=== PATIENT | male | born 1955 | race Caucasian/White ===

== ENCOUNTER 2017-03-17 15:55 | Emergency (ER) | payer SELFPAY ==
[~2017-03-17] VITALS: Ht 167.6 cm; Wt 61.6 kg
[~2017-03-17 15:55] MED LIST: CEPH-368
[2017-03-17] MEDS ORDERED: SODIUM CHLORIDE FLUSH 10ML SYR IVF ONE (16:30)
[2017-03-17] MEDS ORDERED: ONDANSETRON 2MG/ML, 2ML IVPush ONE (16:30)
[2017-03-17] MEDS ORDERED: SODIUM CHLORIDE 0.9% 1,000ML IVBOLUS ONE (16:30)
[2017-03-17] MEDS ORDERED: ONDANSETRON 2MG/ML, 2ML ONE (17:30)
[2017-03-17 17:34] LABS: ASPARTATE AMINO TRANSFERASE 26 U/L (15-37); BLOOD UREA NITROGEN 7 mg/dL (7-18)
[2017-03-17 17:39] LABS: IS PT STATUS REG ER OR PRE ER? YES
[2017-03-17 20:01] VITALS: BP 140/86
== END 2017-03-17 20:04 | disposition home or self-care (01) ==
LOC: ED 18:07
DX: E86.0 Dehydration (principal); R42 Dizziness and giddiness; J44.9 Chronic obstructive pulmonary disease, unspecified
CPT/HCPCS: 36415; 71010; 80053; 81003; 84484; 85025; 93005; 96361; 96374; 99285; J2405; J7030

== ENCOUNTER 2017-05-12 16:25 | Emergency (ER) | payer SELFPAY ==
[~2017-05-12] VITALS: Ht 167.6 cm; Wt 60.4 kg
[2017-05-12 17:25] LABS: BLOOD UREA NITROGEN 8 mg/dL (7-18)
[2017-05-12 17:30] LABS: ASPARTATE AMINO TRANSFERASE 19 U/L (15-37)
[2017-05-12] MEDS ORDERED: HYDROmorphone 1 MG/ML, 1ML ONE ×2 (18:01→20:32)
[2017-05-12] MEDS: HYDROmorphone 1 MG/ML, 1ML IVPush PRN ×2 (18:03→20:36)
[2017-05-12 21:16] VITALS: BP 143/77
== END 2017-05-12 21:18 | disposition home or self-care (01) ==
LOC: ED 18:24
DX: R10.31 Right lower quadrant pain (principal); F17.210 Nicotine dependence, cigarettes, uncomplicated
CPT/HCPCS: 36415; 74177; 80053; 81003; 83690; 85025; 96374; 96376; 99285; J1170

== ENCOUNTER 2017-07-20 23:47 | Emergency (ER) | payer OTHER ==
[~2017-07-20] VITALS: Ht 167.6 cm; Wt 60.6 kg
[2017-07-20 23:50] VITALS: BP 111/74
== END 2017-07-21 01:06 | disposition home or self-care (01) ==
LOC: ED 23:59
DX: H66.011 Acute suppurative otitis media with spontaneous rupture of ear drum, right ear (principal); J44.9 Chronic obstructive pulmonary disease, unspecified
CPT/HCPCS: 99283

== ENCOUNTER 2017-07-24 00:41 | Emergency (ER) | payer SELFPAY ==
[~2017-07-24] VITALS: Ht 177.8 cm; Wt 87.0 kg
[2017-07-24 00:45] VITALS: BP 144/75
[2017-07-24] MEDS ORDERED: IBUPROFEN 200 MG TABLET ONE (02:22)
[2017-07-24] MEDS ORDERED: PLEASE ENTER HEIGHT AND WEIGHT MC SCH (02:30)
[2017-07-24] MEDS ORDERED: IBUPROFEN 200 MG TABLET PO ONE (02:30)
== END 2017-07-24 02:38 | disposition home or self-care (01) ==
LOC: ED 02:30
DX: H66.011 Acute suppurative otitis media with spontaneous rupture of ear drum, right ear (principal)
CPT/HCPCS: 99283

== ENCOUNTER 2017-10-25 20:01 | Emergency (ER) | payer OTHER ==
[~2017-10-25] VITALS: Ht 167.6 cm; Wt 59.8 kg
[2017-10-25] MEDS ORDERED: ALBU8.5H8 INH (21:01)
[2017-10-25] MEDS ORDERED: SODIUM CHLORIDE 0.9% 1,000ML IVBOLUS ONE (21:30)
[2017-10-25] MEDS ORDERED: ALBUTEROL SULFATE 2.5 MG/3 ML NPPB ONE (21:30)
[2017-10-25] MEDS ORDERED: ALBUTEROL/IPRATROPIUM 2.5MG/0.5MG, 3 ML ONE (21:33)
[2017-10-25 21:51] LABS: HEMATOCRIT 47.5 % (39.2-51.8); HEMOGLOBIN 16.3 g/dL (13.7-18.0); WHITE BLOOD COUNT 5.7 x10^3/uL (3.4-10)
[2017-10-25 22:03] LABS: ASPARTATE AMINO TRANSFERASE 29 U/L (15-37); BLOOD UREA NITROGEN 7 mg/dL (7-18)
[2017-10-25 22:11] LABS: IS PT STATUS REG ER OR PRE ER? YES
[2017-10-25 22:22] VITALS: BP 99/63
== END 2017-10-25 22:44 | disposition home or self-care (01) ==
LOC: ED 22:38
DX: J44.1 Chronic obstructive pulmonary disease with (acute) exacerbation (principal); F17.200 Nicotine dependence, unspecified, uncomplicated
CPT/HCPCS: 36415; 71010; 80053; 84484; 85025; 93005; 94640; 99285; J7030; J7512; J7613

== ENCOUNTER 2017-12-30 04:30 | Emergency (ER) | payer OTHER ==
[~2017-12-30] VITALS: Ht 167.6 cm; Wt 60.0 kg
[~2017-12-30 04:30] MED LIST changes: +ALBU8.5H8 INH
[2017-12-30] MEDS ORDERED: KETOROLAC 30 MG/1 ML IM ONE (05:00)
[2017-12-30] MEDS ORDERED: HYDROmorphone 2 MG/ML, 1ML IM ONE (05:00)
[2017-12-30] MEDS ORDERED: HYDROmorphone 2 MG/ML, 1ML ONE (05:03)
[2017-12-30] MEDS ORDERED: KETOROLAC 30 MG/1 ML ONE (05:04)
[2017-12-30] MEDS ORDERED: HYDROcodone/APAP 5/325 TABLET PO ONE (07:30)
[2017-12-30] MEDS ORDERED: ONDANSETRON ODT 4 MG PO ONE (07:30)
[2017-12-30] MEDS ORDERED: ONDANSETRON ODT 4 MG ONE (07:57)
[2017-12-30] MEDS ORDERED: HYDROcodone/APAP 5/325 TABLET ONE (07:58)
[2017-12-30 08:10] VITALS: BP 112/65
== END 2017-12-30 08:53 | disposition home or self-care (01) ==
LOC: ED 05:41
DX: S16.1XXA Strain of muscle, fascia and tendon at neck level, initial encounter (principal); S29.012A Strain of muscle and tendon of back wall of thorax, initial encounter; S30.0XXA Contusion of lower back and pelvis, initial encounter; S09.90XA Unspecified injury of head, initial encounter; M54.6 Pain in thoracic spine; M54.5 Low back pain; F17.200 Nicotine dependence, unspecified, uncomplicated; H72.91 Unspecified perforation of tympanic membrane, right ear; W19.XXXA Unspecified fall, initial encounter; Y93.89 Activity, other specified; Y92.89 Other specified places as the place of occurrence of the external cause; Y99.8 Other external cause status
CPT/HCPCS: 72072; 72110; 72125; 96372; 99284; J1170; J1885; Q0162

== ENCOUNTER 2018-03-14 18:29 | Emergency (ER) | payer MEDICARE, OTHER ==
[~2018-03-14] VITALS: Ht 167.6 cm; Wt 61.6 kg
[2018-03-14 19:08] VITALS: BP 130/70
[2018-03-14] MEDS ORDERED: MECLIZINE CHEWABLE 25 MG TAB ONE (19:14)
[2018-03-14 19:15] LABS: BASOPHILS # (AUTO) 0.03 x10^3/uL (0-0.1); BASOPHILS % (AUTO) 0 % (0-1); EOSINOPHILS # (AUTO) 0.13 x10^3/uL (0-0.4); EOSINOPHILS % (AUTO) 2 % (1-7); LYMPHOCYTES # (AUTO) 2.09 x10^3/uL (1-3.4); LYMPHOCYTES % (AUTO) 26 % (22-44); MD NO; MEAN CORPUSCULAR HEMOGLOBIN 34.2 pg (27.5-34.5); MEAN CORPUSCULAR HGB CONC 34.4 g/dL (33.2-36.2); MEAN CORPUSCULAR VOLUME 99.5 fL (81-97); MEAN PLATELET VOLUME 7.6 fL (7.4-10.4); MONOCYTES # (AUTO) 0.42 x10^3/uL (0.2-0.8); MONOCYTES % (AUTO) 5 % (2-9); NEUTROPHILS # (AUTO) 5.45 x10^3/uL (1.8-6.8); NEUTROPHILS % (AUTO) 67 % (42-75); PLATELET COUNT 303 x10^3/uL (130-400); RED CELL DISTRIBUTION WIDTH 13.4 % (9.4-14.8)
[2018-03-14] MEDS ORDERED: ONDANSETRON ODT 4 MG ONE (19:15)
[2018-03-14 19:21] LABS: ALANINE AMINOTRANSFERASE 24 U/L (12-78); ALBUMIN 3.7 g/dL (3.4-5.0); ANION GAP 11 mmol/L (5-15); CALCIUM 8.5 mg/dL (8.5-10.1); CHLORIDE 106 mmol/L (98-107); CREATININE 0.77 mg/dL (0.7-1.3)
[2018-03-14 19:25] LABS: ALKALINE PHOSPHATASE 75 U/L (45-117); BILIRUBIN,TOTAL 0.4 mg/dL (0.2-1.0); TROPONIN I < 0.015 ng/mL (0.000-0.045)
[2018-03-14] MEDS ORDERED: ONDANSETRON ODT 4 MG PO ONE (19:30)
[2018-03-14] MEDS ORDERED: MECLIZINE CHEWABLE 25 MG TAB PO ONE (19:30)
== END 2018-03-14 20:25 | disposition home or self-care (01) ==
LOC: ED 20:19
DX: R42 Dizziness and giddiness (principal); F17.200 Nicotine dependence, unspecified, uncomplicated
CPT/HCPCS: 36415; 71045; 80053; 84484; 85025; 93005; 99285; Q0162

== ENCOUNTER 2018-10-28 22:03 | Emergency (ER) | payer MEDICARE ==
[~2018-10-28] VITALS: Ht 167.6 cm; Wt 59.3 kg
[2018-10-28 22:04] VITALS: BP 128/78
[2018-10-28] MEDS ORDERED: ALBUTEROL/IPRATROPIUM 2.5MG/0.5MG, 3 ML NPPB SCH (22:30)
[2018-10-28] MEDS ORDERED: ALBUTEROL/IPRATROPIUM 2.5MG/0.5MG, 3 ML ONE (22:34)
== END 2018-10-28 23:45 | disposition home or self-care (01) ==
LOC: ED 22:52
DX: J43.9 Emphysema, unspecified (principal); F17.200 Nicotine dependence, unspecified, uncomplicated
CPT/HCPCS: 71046; 93005; 94640; 99283; J7512; J7620

== ENCOUNTER → 2019-03-13 | Outpatient (CLI) | payer MEDICARE, MEDICAID ==
[~2019-03-13] MED LIST changes: +ALBU18HF INH; +AMOX1TAB12 PO; +AZIT500T5 PO; +GUAI200T3 PO; +OSEL75CA PO; +PRED20TA PO; +TIOT18CA INH
== END | disposition home or self-care (01) ==
LOC: PETCFH 13:20
PROVIDERS: ATTEND Internal Medicine
DX: R91.1 Solitary pulmonary nodule (principal); J43.2 Centrilobular emphysema
CPT/HCPCS: 78815; A9552

== ENCOUNTER → 2019-04-02 | Outpatient (CLI) | payer MEDICARE, MEDICAID ==
[~2019-04-02] MED LIST changes: -OSEL75CA PO; +OSEL75CA26 PO; +REGADENOSON 0.4 MG/5 ML SYRINGE ONE
== END | disposition home or self-care (01) ==
LOC: CFH 08:04
PROVIDERS: ATTEND Internal Medicine Cardiovascular Disease
DX: I42.9 Cardiomyopathy, unspecified (principal); R06.02 Shortness of breath
CPT/HCPCS: 78452; 93017; A9502; J2785

== ENCOUNTER → 2019-04-30 | Outpatient (CLI) | payer MEDICARE, MEDICAID ==
[~2019-04-30] MED LIST changes: -REGADENOSON 0.4 MG/5 ML SYRINGE ONE
== END | disposition home or self-care (01) ==
LOC: LAB 10:11
PROVIDERS: ATTEND Podiatrist Foot & Ankle Surgery
DX: M10.372 Gout due to renal impairment, left ankle and foot (principal)
CPT/HCPCS: 36415; 84550